=== PATIENT | male | born 1990 | race African-American/Black ===

== ENCOUNTER 2025-01-29 12:08 | Emergency (ER) | payer MEDICAID ==
[~2025-01-29] VITALS: Ht 190.5 cm; Wt 105.0 kg
[2025-01-29 12:16] VITALS: O2SAT 98
[2025-01-29] MEDS: ONDANSETRON HCL 4MG/2ML INJ IV ONE (12:57)
[2025-01-29] MEDS: MAGNESIUM/ALUMINUM HYDROXIDE/SIMETHICONE 30ML UDC PO ONE (12:57)
[2025-01-29] MEDS: VISCOUS LIDOCAINE 2% 15 ML UDC MM ONE (12:57)
[2025-01-29] MEDS: SODIUM CHLORIDE 0.9% 1,000 ML IV ONE (12:57)
[2025-01-29] MEDS: FAMOTIDINE 20MG/2ML VIAL IV ONE (12:58)
[2025-01-29 13:00] LABS: BASOPHILS % 0.8 % (0.0-2.0); EOSINOPHILS % 1.2 % (0.0-5.0); HEMATOCRIT. 42.0 % (42.0-52.0); HEMOGLOBIN. 14.1 g/dL (14.0-18.0); LYMPHOCYTES % 30.6 % (20.0-50.0); MEAN PLATELET VOLUME 7.4 fl (7.4-10.4); MONOCYTES % 14.8 % (2.0-8.0); NEUTROPHILS % 52.6 % (40.0-76.0); PLATELET 343 x1000/uL (130-400); RED BLOOD CELL COUNT 4.95 mill/uL (4.7-6.1); RED CELL DISTRIBUTION WIDTH 13.8 % (11.6-14.6)
[2025-01-29 13:15] LABS: CREATININE 1.1 mg/dL (0.6-1.3)
[2025-01-29 13:16] LABS: UREA NITROGEN BLOOD 11 mg/dL (9-23)
[2025-01-29 13:17] LABS: ASPARTATE AMINOTRANSFERASE 21 IU/L (<34)
[2025-01-29 13:18] LABS: BILIRUBIN DIRECT 0.2 mg/dL (<=3.0); BILIRUBIN TOTAL 0.6 mg/dL (0.1-1.0); PROTEIN TOTAL 8.3 g/dL (6.0-8.3)
[2025-01-29] MEDS: MORPHINE SULFATE 4 MG/ML INJ (FOR IV/IM USE) IV ONE (13:18)
[2025-01-29] MEDS ORDERED: HYDROMORPHONE HCL/PF 2MG/ML INJ IV ONE (14:15)
[2025-01-29] MEDS: HYDROMORPHONE HCL/PF 1MG/ML INJ IV NR (14:16)
[2025-01-29 17:07] LABS: CLARITY URINE CLEAR (CLEAR); COLOR URINE YELLOW (YELLOW); GLUCOSE URINE NEGATIVE (NEGATIVE); KETONES URINE TRACE (NEGATIVE); LEUKOCYTE ESTERASE URINE NEGATIVE (NEGATIVE); NITRITE URINE NEGATIVE (NEGATIVE); OCCULT BLOOD URINE NEGATIVE (NEGATIVE); PH URINE 8.0 (4.5-8.0); PROTEIN URINE NEGATIVE (NEGATIVE); SPECIFIC GRAVITY URINE 1.020 (1.005-1.030); UROBILINOGEN URINE 0.2 E.U./dL (0.2-1.0)
[2025-01-29 17:14] LABS: *AMPHETAMINES SCREEN URINE NEGATIVE (NEGATIVE); *BARBITURATES SCREEN URINE NEGATIVE (NEGATIVE); *BENZODIAZEPINES SCREEN URINE NEGATIVE (NEGATIVE); *COCAINE SCREEN URINE NEGATIVE (NEGATIVE)
[2025-01-29 17:15] LABS: CANNABINOID URINE SCREEN PRESUMPTIVE POSITIVE (NEGATIVE); ECSTASY MDMA SCREEN URINE NEGATIVE (NEGATIVE); METHADONE URINE SCREEN NEGATIVE (NEGATIVE); OPIATES URINE SCREEN PRESUMPTIVE POSITIVE (NEGATIVE); PHENCYCLIDINE URINE SCREEN NEGATIVE (NEGATIVE)
[2025-01-29 18:14] VITALS: BP 131/70; PULSE 69; RESP 22; TEMP 36.8; O2SAT 98
== END 2025-01-29 18:31 | disposition home or self-care (01) ==
LOC: ER 12:50
DX: R10.9 Unspecified abdominal pain (principal); F12.90 Cannabis use, unspecified, uncomplicated; R11.2 Nausea with vomiting, unspecified; F17.200 Nicotine dependence, unspecified, uncomplicated; Z79.899 Other long term (current) drug therapy
CPT/HCPCS: 80076; 80305; 80048; 81003; 80320; 83690; 85025; 36415; 74176; 96374; 96375; 99285; J1308; J2405; J1171; J2270; J7030; Z7610; G0480

== ENCOUNTER 2025-01-31 21:43 | Emergency (ER) | payer MEDICAID ==
[~2025-01-31] VITALS: Ht 177.8 cm; Wt 73.0 kg
[2025-01-31 21:49] VITALS: O2SAT 97
[2025-01-31] MEDS: KETOROLAC 30MG/ML VIAL IM ONE (22:13)
[2025-01-31] MEDS: HALOPERIDOL LACTATE 5MG/ML VIAL IM ONE (22:15)
[2025-01-31] MEDS: SODIUM CHLORIDE 0.9% 1,000 ML IV ONE (22:17)
[2025-01-31 23:05] LABS: BASOPHILS % 0.8 % (0.0-2.0); EOSINOPHILS % 1.2 % (0.0-5.0); HEMATOCRIT. 38.4 % (42.0-52.0); HEMOGLOBIN. 13.0 g/dL (14.0-18.0); LYMPHOCYTES % 29.0 % (20.0-50.0); MEAN PLATELET VOLUME 8.1 fl (7.4-10.4); MONOCYTES % 9.0 % (2.0-8.0); NEUTROPHILS % 60.0 % (40.0-76.0); PLATELET 378 x1000/uL (130-400); RED BLOOD CELL COUNT 4.54 mill/uL (4.7-6.1); RED CELL DISTRIBUTION WIDTH 13.9 % (11.6-14.6)
[2025-01-31 23:16] VITALS: TEMP 36.7; O2SAT 98
[2025-01-31 23:19] LABS: CREATININE 1.2 mg/dL (0.6-1.3); UREA NITROGEN BLOOD 16 mg/dL (9-23)
[2025-01-31 23:21] LABS: ASPARTATE AMINOTRANSFERASE 36 IU/L (<34); BILIRUBIN DIRECT 0.2 mg/dL (<=3.0); BILIRUBIN TOTAL 0.7 mg/dL (0.1-1.0); PROTEIN TOTAL 7.6 g/dL (6.0-8.3)
[2025-02-01] MEDS: PANTOPRAZOLE SODIUM 40 MG/VIAL IV NR (01:16)
[2025-02-01] MEDS: SUCRALFATE 1G TABLET PO SCH (01:16)
[2025-02-01] MEDS: ONDANSETRON HCL 4MG/2ML INJ IV NR (01:16)
[2025-02-01] MEDS ORDERED: PROT40 MT (01:18)
[2025-02-01] MEDS ORDERED: ONDA4TAB50 MT (01:18)
[2025-02-01 01:20] VITALS: BP 118/55; PULSE 76; RESP 19
[2025-02-01 01:35] LABS: CLARITY URINE CLEAR (CLEAR); COLOR URINE YELLOW (YELLOW); GLUCOSE URINE NEGATIVE (NEGATIVE); KETONES URINE 2+ (NEGATIVE); LEUKOCYTE ESTERASE URINE NEGATIVE (NEGATIVE); NITRITE URINE NEGATIVE (NEGATIVE); OCCULT BLOOD URINE NEGATIVE (NEGATIVE); PH URINE 5.5 (4.5-8.0); PROTEIN URINE TRACE (NEGATIVE); SPECIFIC GRAVITY URINE 1.033 (1.005-1.030); UROBILINOGEN URINE 1.0 E.U./dL (0.2-1.0)
[2025-02-01 02:04] LABS: *AMPHETAMINES SCREEN URINE NEGATIVE (NEGATIVE); *BARBITURATES SCREEN URINE NEGATIVE (NEGATIVE); *BENZODIAZEPINES SCREEN URINE PRESUMPTIVE POSITIVE (NEGATIVE); *COCAINE SCREEN URINE NEGATIVE (NEGATIVE); CANNABINOID URINE SCREEN PRESUMPTIVE POSITIVE (NEGATIVE); ECSTASY MDMA SCREEN URINE NEGATIVE (NEGATIVE); METHADONE URINE SCREEN NEGATIVE (NEGATIVE); OPIATES URINE SCREEN PRESUMPTIVE POSITIVE (NEGATIVE); PHENCYCLIDINE URINE SCREEN NEGATIVE (NEGATIVE)
[2025-02-01 02:52] LABS: BACTERIA URINE NONE SEEN; RBC URINE 0-2 /hpf (0-2); SQUAMOUS EPITHELIAL CELL URINE FEW /lpf (RARE/1+); WBC URINE 0-2 /hpf (0-2)
== END 2025-02-01 01:35 | disposition home or self-care (01) ==
LOC: ER 21:43 → CMPBEDREQ 02-01 08:00
DX: R10.10 Upper abdominal pain, unspecified (principal); F12.90 Cannabis use, unspecified, uncomplicated; F11.90 Opioid use, unspecified, uncomplicated; Z79.899 Other long term (current) drug therapy
CPT/HCPCS: 80076; 80048; 80320; 83690; 85025; 36415; 74176; 96361; 96372; 99285; 80305; 81003; 96374; 96375; J1630; J1885; J7030; Z7610 ×2; J2405; J2470; A4606; G0480